=== PATIENT | female | born 1960 | race Caucasian/White ===

== ENCOUNTER 2021-01-28 08:59 | Emergency (ER) | payer OTHER ==
--- NOTE | 2021-01-28 09:37 | EDM.PDOC ---
ED HPI GENERAL MEDICAL PROBLEM - General Chief Complaint: Lower Extremity Injury/Pain Stated Complaint: LEFT KNEE PAIN Time Seen by Provider: 01/28/21 09:33 Source of Information: Reports: Patient, RN Notes Reviewed History Limitations: Reports: No Limitations - History of Present Illness INITIAL COMMENTS - FREE TEXT/NARRATIVE: 60-year-old female presents emergency department today following a fall yesterday she landed on her left knee, pain was quite intense this morning had difficulty bearing weight this has improved. She does have an abrasion on that knee as well Left Knee Pain Score (Numeric/FACES): 3 - Related Data Allergies Allergy/AdvReac Type Severity Reaction Status Date / Time codeine Allergy Fainting Verified 01/28/21 09:31 Sulfa (Sulfonamide Allergy Indigestion Verified 01/28/21 09:31 Antibiotics) Home Meds: Home Meds Loratadine 10 mg PO DAILY 01/28/21 [History] Past Medical History - Infectious Disease History Infectious Disease History: Reports: Chicken Pox, Measles, Mumps Social & Family History - Tobacco Use Tobacco Use Status *Q: Never Tobacco User - Caffeine Use Caffeine Use: Reports: Coffee - Recreational Drug Use Recreational Drug Use: No Review of Systems - Review of Systems Review Of Systems: See Below Musculoskeletal: Reports: Joint Pain Skin: Reports: Bruising ED EXAM, GENERAL - Physical Exam Exam: See Below Free Text/Narrative:: Examination of the left knee I do appreciate abrasion just inferior to the patella she can bear weight there is no specific joint line tenderness there is tenderness over the abrasion area however she tolerates a Fanny's maneuver as well as Varus and valgus maneuvers Exam Limited By: No Limitations General Appearance: Alert, WD/WN, No Apparent Distress Course - Vital Signs Last Recorded V/S: Last Vital Signs Temp 98.3 F 01/28/21 09:33 Pulse 64 01/28/21 09:33 Resp 16 01/28/21 09:33 BP 118/52 L 01/28/21 09:33 Pulse Ox 98 01/28/21 09:33 - Orders/Labs/Meds Orders: Active Orders 24 hr Category Date Time Status Knee 3V Lt [CR] Stat Exams 01/28/21 09:35 Taken Departure - Departure Time of Disposition: 10:16 Disposition: Home, Self-Care 01 Condition: Fair Clinical Impression: Contusion of left knee Qualifiers: Encounter type: initial encounter Qualified Code(s): S80.02XA - Contusion of left knee, initial encounter - Discharge Information Instructions: Contusion, [id number] Referrals: PCP,None [Primary Care Provider] - Forms: ED Department Discharge Additional Instructions: Continue to use anti-inflammatories as needed rest and ice, please followup with your primary care provider in 5-7 days if not better, please call return to the emergency department with worsening of symptoms. Sepsis Event Note (ED) - Evaluation Sepsis Screening Result: No Definite Risk - Focused Exam Vital Signs: Vital Signs Temp Pulse Resp BP Pulse Ox 01/28/21 09:33 98.3 F 64 16 118/52 L 98 01/28/21 09:28 98.3 F 64 16 118/52 L 98 - My Orders Last 24 Hours: My Active Orders 01/28/21 09:35 Knee 3V Lt [CR] Stat - Assessment/Plan Last 24 Hours: My Active Orders 01/28/21 09:35 Knee 3V Lt [CR] Stat Plan: Assessment Acuity = acute Site and laterality = contusion left knee Etiology = trauma Manifestations = none Location of injury = Home Lab values = knee x-ray I did review films myself I cannot appreciate any acute process, the official read from radiology is pending Plan Rest ice anti-inflammatories follow-up primary care 5-7 days if no improvement This note was dictated using [employer] voice recognition software please call with any questions on syntax or grammar.
--- NOTE | 2021-01-29 09:59 | CR ---
Knee 3V Lt CLINICAL HISTORY: Fall, pain FINDINGS: There is slight depression of the lateral tibial plateau. Chronology is uncertain. This is most likely remote. There is some narrowing in the patellofemoral joint space. IMPRESSION: Minimal depression of the lateral tibial plateau is likely of remote chronology. Mild osteoarthritic change. If clinical symptomatology persists or worsens a repeat exam is recommended.
== END 2021-01-28 10:34 | disposition home or self-care (01) ==
LOC: JP.ED 08:59
DX: S80.02XA Contusion of left knee, initial encounter (principal); Z88.5 Allergy status to narcotic agent; Z88.2 Allergy status to sulfonamides; W18.39XA Other fall on same level, initial encounter
CPT/HCPCS: 73562-26-LT; 73562-LT; 99282; 99283-25